=== PATIENT | male | born 1965 | race Caucasian/White ===

== ENCOUNTER 2017-01-22 15:34 | Emergency (ER) | payer BC | END 2017-01-22 19:38 | disposition critical access hospital (66) | LOC: ER 15:34 | DX: J18.9 Pneumonia, unspecified organism (principal); D72.829 Elevated white blood cell count, unspecified; R73.9 Hyperglycemia, unspecified; R65.10 Systemic inflammatory response syndrome (SIRS) of non-infectious origin without acute organ dysfunction; D72.825 Bandemia; Z87.891 Personal history of nicotine dependence; Z88.0 Allergy status to penicillin | CPT/HCPCS: 36415; 87502; 96361; 96365; 96375 ==

== ENCOUNTER 2017-01-22 15:34 | Inpatient (IN) | payer BC ==
--- NOTE | 2017-01-26 07:49 | NUR ---
0650 - NOTIFIED BED AVAILABLE AT [facility] 4A. ROOM NUMBER WILL BE AVAILABLE AT REGISTRATION.
--- NOTE | 2017-01-26 07:49 | NUR ---
0655 - CALLED LENKA GEIGER RN AT [phone] TO GIVE REPORT. REPORT GIVEN.
--- NOTE | 2017-01-26 07:53 | NUR ---
0730 - PT LEFT FLOOR VIA STRETCHER ACCOMPANIED BY EMS. NO S/S OF DISTRESS.
== END 2017-01-26 07:30 | disposition short-term general hospital (02) | DRG 872 ==
LOC: ER 15:34 → MED 19:39
PROVIDERS: ADMIT Internal Medicine
DX: A41.9 Sepsis, unspecified organism (principal); C85.90 Non-Hodgkin lymphoma, unspecified, unspecified site; E87.2 Acidosis; Z68.43 Body mass index [BMI] 50.0-59.9, adult; R65.20 Severe sepsis without septic shock; D72.829 Elevated white blood cell count, unspecified; M25.50 Pain in unspecified joint; E11.9 Type 2 diabetes mellitus without complications; M06.9 Rheumatoid arthritis, unspecified; Z98.84 Bariatric surgery status; Z86.14 Personal history of Methicillin resistant Staphylococcus aureus infection; Z79.899 Other long term (current) drug therapy; Z88.0 Allergy status to penicillin; Z83.3 Family history of diabetes mellitus; Z80.52 Family history of malignant neoplasm of bladder; D72.825 Bandemia; L30.9 Dermatitis, unspecified; I10 Essential (primary) hypertension; E66.01 Morbid (severe) obesity due to excess calories; M32.9 Systemic lupus erythematosus, unspecified; E03.9 Hypothyroidism, unspecified; E87.6 Hypokalemia
CPT/HCPCS: 36415; 84145; 87502; J1650; J1885; J2248; J3370; J7040; J7050; Q9963; Q9967

== ENCOUNTER 2017-03-15 19:25 | Inpatient (IN) | payer BC ==
[~2017-03-15] VITALS: Ht 182.9 cm; Wt 161.5 kg
== END 2017-03-17 15:00 | disposition home or self-care (01) | DRG 844 ==
LOC: ER 19:25 → MED 22:04
PROVIDERS: ADMIT Internal Medicine
DX: C79.9 Secondary malignant neoplasm of unspecified site (principal); Z68.42 Body mass index [BMI] 45.0-49.9, adult; R11.2 Nausea with vomiting, unspecified; T45.1X5A Adverse effect of antineoplastic and immunosuppressive drugs, initial encounter; E11.9 Type 2 diabetes mellitus without complications; D69.6 Thrombocytopenia, unspecified; E87.6 Hypokalemia; E83.42 Hypomagnesemia; I10 Essential (primary) hypertension; M06.9 Rheumatoid arthritis, unspecified; Z86.14 Personal history of Methicillin resistant Staphylococcus aureus infection; Z79.4 Long term (current) use of insulin; Z79.899 Other long term (current) drug therapy; Z88.0 Allergy status to penicillin; Z87.891 Personal history of nicotine dependence; Z83.3 Family history of diabetes mellitus; E66.9 Obesity, unspecified
CPT/HCPCS: 36415; 87502; J2550

== ENCOUNTER 2017-03-15 19:25 | Emergency (ER) | payer BC | END 2017-03-15 22:03 | disposition critical access hospital (66) | LOC: ER 19:25 | DX: E87.6 Hypokalemia (principal); R50.9 Fever, unspecified; C43.9 Malignant melanoma of skin, unspecified; R63.0 Anorexia; R11.2 Nausea with vomiting, unspecified; E11.9 Type 2 diabetes mellitus without complications; Z87.891 Personal history of nicotine dependence; Z79.4 Long term (current) use of insulin; Z79.899 Other long term (current) drug therapy; Z88.0 Allergy status to penicillin | CPT/HCPCS: 96361; 96365; 96375 ==